=== PATIENT | female | born 1980 | race Hispanic/Latino ===

== ENCOUNTER 2017-03-31 09:51 | Observation (INO) | payer BC ==
[~2017-03-31 09:51] MED LIST: FLUT9.9S NS; IBUP-2077 PO
[2017-03-31 10:37] LABS: BASOPHILS % (AUTO) 0.4 % (0.0-5.0); LYMPHOCYTES % (AUTO) 16.5 % (21.0-51.0); MEAN CORPUSCULAR HEMOGLOBIN 30.2 pg (27.0-33.0); MEAN CORPUSCULAR HGB CONC 33.7 g/dL (32.0-36.0); MEAN CORPUSCULAR VOLUME 89.6 fL (79-99); MONOCYTES % (AUTO) 5.5 % (3.0-13.0); NEUTROPHILS % (AUTO) 75.6 % (40.0-77.0); PLATELET COUNT (AUTO) 241 K/uL (130-400); RED CELL DISTRIBUTION WIDTH 13.5 % (11.0-15.5); WHITE BLOOD COUNT (AUTO) 7.8 K/uL (4.8-10.8)
[2017-03-31 10:51] LABS: INR 0.88 (0.85-1.15); PARTIAL THROMBOPLASTIN TIME 25.6 SEC (26.3-35.5); PROTHROMBIN TIME 9.3 SEC (9.6-11.6)
[2017-03-31 11:00] LABS: CREATININE 0.6 mg/dL (0.5-1.5); POTASSIUM 3.9 mmol/L (3.5-5.1)
[2017-03-31 11:06] LABS: ALBUMIN 2.6 g/dL (3.5-5.0); BILIRUBIN,TOTAL 0.5 mg/dL (0.2-1.0); TOTAL PROTEIN, SERUM 6.8 g/dL (6.0-8.3); URIC ACID 4.1 mg/dL (2.6-7.2)
== END 2017-03-31 12:20 | disposition home or self-care (01) ==
LOC: LDH 09:51
DX: Z34.93 Encounter for supervision of normal pregnancy, unspecified, third trimester (principal); Z3A.37 37 weeks gestation of pregnancy
CPT/HCPCS: 36415; 59025; 76819; 80053; 84550; 85025; 85384; 85610; 85730; G0378 ×2

== ENCOUNTER 2017-04-03 08:13 | Inpatient (IN) | payer BC ==
[2017-04-03] MEDS ORDERED: PHENYLEPHRINE HCL 10 MG/ML 1ML VIAL IV ONE (09:54)
[2017-04-03] MEDS ORDERED: OXYTOCIN 10 USP UNITS/ML ONE ×4 (09:54→18:44)
[2017-04-03] MEDS ORDERED: ONDANSETRON HCL 4 MG/2 ML VIAL ONE (09:54)
[2017-04-03] MEDS ORDERED: FENTANYL CITRATE PF 50 MCG/1 ML 2ML VIAL ONE (09:55)
[2017-04-03] MEDS ORDERED: CEFAZOLIN SODIUM 1 GM VIAL ONE (10:03)
[2017-04-03] MEDS ORDERED: CALDOLOR 800MG+NS 250ML 250 ML IV ONE (10:03)
[2017-04-03] MEDS ORDERED: DURAMORPH PF1 MG/ML 10ML AMP IV ONE (10:10)
[2017-04-03] MEDS ORDERED: CALDOLOR 800MG+NS 250ML 250 ML IV PRN (10:15)
[2017-04-03] MEDS ORDERED: CEFAZOLIN SODIUM 1 GM VIAL IVP PRN (10:15)
[2017-04-03] MEDS ORDERED: CEFAZOLIN SODIUM 1 GM VIAL IVP ONE (10:20)
[2017-04-03 10:23] LABS: MEAN CORPUSCULAR HEMOGLOBIN 30.2 pg (27.0-33.0); MEAN CORPUSCULAR VOLUME 88.8 fL (79-99); PLATELET COUNT (AUTO) 259 K/uL (130-400); RED BLOOD CELL COUNT(AUTO) 3.83 MIL/uL (4.00-5.50); RED CELL DISTRIBUTION WIDTH 13.9 % (11.0-15.5); WHITE BLOOD COUNT (AUTO) 9.4 K/uL (4.8-10.8)
[2017-04-03 10:29] LABS: APPEARANCE,URINE Cloudy (CLEAR); BILIRUBIN,URINE Negative (NEGATIVE); COLOR,URINE Yellow (YELLOW); GLUCOSE, URINE (UA) Negative (NEGATIVE); KETONES,URINE Negative (NEGATIVE); LEUKOCYTE ESTERASE ,URINE Small (NEGATIVE); NITRATE,URINE Negative (NEGATIVE); OCCULT BLOOD,URINE Negative (NEGATIVE); PH,URINE 5.5 (5.0-8.0); PROTEIN,URINE Negative (NEGATIVE)
[2017-04-03 11:26] LABS: BACTERIA,URINE Moderate /HPF (None Seen); RBC,URINE 0-1 /HPF (0-1); SQUAMOUS EPITHELIAL CELL,UR 30-50 /LPF (0-2)
[2017-04-03] MEDS ORDERED: OXYTOCIN-LR 20 UNITS/1000 ML 1,000 ML IV PRN (11:37)
[2017-04-03] MEDS ORDERED: CEFAZOLIN SODIUM 1 GM VIAL IVP SCH (11:45)
[2017-04-03] MEDS ORDERED: LANOLIN 30GM OINTMENT TP PRN (11:45)
[2017-04-03] MEDS ORDERED: DIPHENHYDRAMINE HCL 25 MG CAPSULE PO PRN (11:45)
[2017-04-03] MEDS ORDERED: SODIUM CHLORIDE 0.9% 10 ML VIAL IVP PRN (11:45)
[2017-04-03] MEDS ORDERED: DEXTROSE 5 %-0.45 % NACL 1,000 ML IV PRN (11:45)
[2017-04-03] MEDS ORDERED: CEFAZOLIN 3GM /D5W 100ML 100 ML IV SCH (11:45)
[2017-04-03] MEDS: IBUPROFEN 800 MG TAB PO SCH ×2 (11:45→19:45)
[2017-04-03 13:00] VITALS: BP 139/93
[2017-04-03 15:58] VITALS: BP 131/68
[2017-04-03] MEDS ORDERED: NALOXONE HCL 0.4 MG/1 ML ML IVP PRN ×2 (17:15)
[2017-04-03] MEDS ORDERED: ONDANSETRON HCL 4 MG/2 ML VIAL IVP PRN ×2 (17:15)
[2017-04-03] MEDS ORDERED: PROMETHAZINE HCL 25 MG/ML 1ML AMPULE IM PRN (17:15)
[2017-04-03] MEDS ORDERED: METOCLOPRAMIDE 10 MG/2 ML VIAL IVP PRN (17:15)
[2017-04-03] MEDS ORDERED: ONDANSETRON HCL 4 MG/2 ML 8 MG in SODIUM CHLORIDE 0.9% 50 ML IVP NR (17:15)
[2017-04-03] MEDS ORDERED: DiphenhydrAMINE HCL 50 MG/ML VIAL IVP PRN (17:15)
[2017-04-03] MEDS ORDERED: EPHEDRINE SULFATE 50 MG/ML AMPULE IVP PRN (17:15)
[2017-04-03] MEDS ORDERED: MORPHINE SULFATE 2 MG/ML 1ML SYG IVP PRN (17:15)
[2017-04-03] MEDS ORDERED: HYDROCODONE/ACETAMINOPHEN 5/325 MG TAB PO PRN (17:15)
[2017-04-03] MEDS: CEFAZOLIN 3GM /D5W 100ML 100 ML IV SCH (19:32)
[2017-04-03 19:43] VITALS: BP 148/84
[2017-04-03] MEDS: DOCUSATE SODIUM 100 MG CAP PO SCH (21:06)
[2017-04-03] MEDS: CALDOLOR 800MG+NS 250ML 250 ML IV SCH (21:06)
[2017-04-03 23:15] VITALS: BP 109/59
[2017-04-04] VITALS (8 sets, daily range): BP systolic 123–158; BP diastolic 57–99
[2017-04-04] MEDS: CEFAZOLIN 3GM /D5W 100ML 100 ML IV SCH (02:49)
[2017-04-04] MEDS: HYDROCODONE/ACETAMINOPHEN 5/325 MG TAB PO PRN ×2 (03:19→20:30)
[2017-04-04] MEDS: CALDOLOR 800MG+NS 250ML 250 ML IV SCH (03:20)
[2017-04-04] MEDS: IBUPROFEN 800 MG TAB PO SCH ×4 (03:41→19:23)
[2017-04-04 06:46] LABS: HEMATOCRIT 29.1 % (36-48); MEAN CORPUSCULAR HEMOGLOBIN 31.7 pg (27.0-33.0); MEAN CORPUSCULAR HGB CONC 35.3 g/dL (32.0-36.0); MEAN CORPUSCULAR VOLUME 89.8 fL (79-99); PLATELET COUNT (AUTO) 206 K/uL (130-400); RED BLOOD CELL COUNT(AUTO) 3.23 MIL/uL (4.00-5.50); RED CELL DISTRIBUTION WIDTH 13.6 % (11.0-15.5); WHITE BLOOD COUNT (AUTO) 10.3 K/uL (4.8-10.8)
[2017-04-04 07:30] LABS: HEPATITIS Bs ANTIGEN SCREEN P Negative (Negative)
[2017-04-04] MEDS: ACETAMINOPHEN-CODEINE 300/30MG TAB PO PRN (08:46)
[2017-04-04] MEDS: SIMETHICONE 80 MG TAB.CHEW PO PRN ×4 (08:46→20:28)
[2017-04-04] MEDS: DOCUSATE SODIUM 100 MG CAP PO SCH ×2 (08:46→20:28)
[2017-04-04] MEDS ORDERED: DIPH,PERTUSS(ACELL),TET VAC/PF 0.5 ML VIAL IM ONE (18:42)
[2017-04-05 00:30] VITALS: BP 122/46
[2017-04-05 02:56] VITALS: BP 135/64
[2017-04-05] MEDS: IBUPROFEN 800 MG TAB PO SCH ×4 (03:20→11:52)
[2017-04-05 07:59] VITALS: BP 146/98
[2017-04-05] MEDS: DOCUSATE SODIUM 100 MG CAP PO SCH (08:23)
[2017-04-05] MEDS: SIMETHICONE 80 MG TAB.CHEW PO PRN (08:23)
[2017-04-05] MEDS: ACETAMINOPHEN-CODEINE 300/30MG TAB PO PRN (08:24)
[2017-04-05] MEDS ORDERED: LABETALOL HCL 100 MG TABLET PO SCH ×2 (09:40→21:00)
[2017-04-05 12:18] VITALS: BP 149/94
== END 2017-04-05 13:10 | disposition home or self-care (01) | DRG 765 ==
LOC: LDH 08:13 → WSH 13:00
PROC: 10D00Z1 Extraction of Products of Conception, Low, Open Approach (ICD-10-PCS; principal; 2017-04-03 11:30)
PROC: 3E0234Z Introduction of Serum, Toxoid and Vaccine into Muscle, Percutaneous Approach (ICD-10-PCS; 2017-04-04)
DX: O32.2XX0 Maternal care for transverse and oblique lie, not applicable or unspecified (principal); D62 Acute posthemorrhagic anemia; O11.4 Pre-existing hypertension with pre-eclampsia, complicating childbirth; O36.63X0 Maternal care for excessive fetal growth, third trimester, not applicable or unspecified; O90.81 Anemia of the puerperium; O69.1XX0 Labor and delivery complicated by cord around neck, with compression, not applicable or unspecified; Z37.0 Single live birth; Z3A.37 37 weeks gestation of pregnancy; Z23 Encounter for immunization; Z90.49 Acquired absence of other specified parts of digestive tract; Z83.3 Family history of diabetes mellitus
CPT/HCPCS: 36415; 59510; 81001; 85027; 86592; 86850; 86900; 86901; 87340; 90715; A4218; A4344; A4606; J0690; J1741; J2274; J2370; J2405; J2590; J3010; J7120